=== PATIENT | male | born 1985 ===

== ENCOUNTER 2016-06-26 21:22 | Emergency (ER) | payer SELFPAY ==
[2016-06-27] MEDS ORDERED: DIPHTH,PERTUSS(ACELL),TET VAC 0.5 ML VIAL IM V ONE (00:46)
== END 2016-06-27 01:18 | disposition home or self-care (01) ==
LOC: ED 21:22
DX: S61.211A Laceration without foreign body of left index finger without damage to nail, initial encounter (principal); Z23 Encounter for immunization; W26.0XXA Contact with knife, initial encounter; Y93.H3 Activity, building and construction; Y92.9 Unspecified place or not applicable